=== PATIENT | male | born 1985 | race Caucasian/White ===

== ENCOUNTER 2018-07-22 00:55 | Emergency (ER) | payer OTHER ==
[2018-07-22 01:14] VITALS: TEMP 97.2
[2018-07-22] MEDS ORDERED: HYDROMORPHONE HCL 2 MG/ML SOL IM ONE (01:25)
[2018-07-22] MEDS ORDERED: SOLUMEDROL 125 MG/2 ML 125 MG/2 ML PDS IM ONE (01:25)
[2018-07-22] MEDS ORDERED: HYDROMORPHONE 1 MG/ML SYRINGE ONE (01:26)
[2018-07-22] MEDS ORDERED: SOLUMEDROL 125 MG/2 ML 125 MG/2 ML PDS ONE (01:26)
[2018-07-22] MEDS ORDERED: FENTANYL 100MCG/2ML SOL IM ONE (01:49)
[2018-07-22] MEDS ORDERED: FENTANYL 100MCG/2ML SOL ONE (01:51)
[2018-07-22 02:39] VITALS: RESP 20
[2018-07-22 02:41] VITALS: BP 162/87; PULSE 83; O2SAT 98
== END 2018-07-22 02:29 | disposition home or self-care (01) | DRG 554 ==
LOC: ED 00:55
DX: M10.9 Gout, unspecified (principal)
CPT/HCPCS: 96372; 99282; 99284; J2930; J3010; J1170

== ENCOUNTER 2018-07-28 15:16 | Outpatient (CLI) | payer OTHER ==
[2018-07-22 02:41] VITALS: O2SAT 98
== END 2018-07-28 15:17 | disposition home or self-care (01) | DRG 556 ==
LOC: CONVCARE 15:16
PROVIDERS: ATTEND Orthopaedic Surgery
DX: M25.571 Pain in right ankle and joints of right foot (principal); M25.471 Effusion, right ankle

== ENCOUNTER 2018-09-23 20:48 | Emergency (ER) | payer OTHER ==
[2018-09-23 21:12] VITALS: RESP 18; TEMP 97; O2SAT 99
[2018-09-23] MEDS ORDERED: AUGMENTIN(FRIDGE) 400 MG/5 ML PO ONE (21:13)
[2018-09-23] MEDS ORDERED: TDAP VACCINE 0.5 ML SUS IM ONE ×2 (21:18→21:20)
[2018-09-23] MEDS ORDERED: AMOXIL/CLAVULANATE 400/5 ML PDR ONE (21:21)
[2018-09-23] MEDS ORDERED: BACITRACIN 500 U/GM OIN TOP ONE ×2 (21:23→21:25)
[2018-09-23 21:47] VITALS: BP 132/94; PULSE 86
== END 2018-09-23 21:50 | disposition home or self-care (01) | DRG 605 ==
LOC: ED 20:48
DX: S61.452A Open bite of left hand, initial encounter (principal); W54.0XXA Bitten by dog, initial encounter
CPT/HCPCS: 90471; 90715; 99282; 99283; A9270-GY